=== PATIENT | male | born 1950 | race Caucasian/White ===

== ENCOUNTER → 2021-12-28 | Day surgery (SDC) | payer MEDICARE ==
[~2021-12-28] VITALS: Ht 172.7 cm; Wt 94.3 kg
[~2021-12-28] MED LIST: ALLERGY RELIEF10 M1 PO; ASPIRIN EC81 MG PO; HYDROCODON-ACE1 EAC4 PO; LISINOPRIL-HCT1 EAC1 PO; MAGNESIUM PO; NORVASC5 MG PO; PRAVACHOL20 MG PO; PROTONIX 40MG T40 MG PO
== END | disposition home or self-care (01) ==
LOC: FAS 07:18
DX: Z12.11 Encounter for screening for malignant neoplasm of colon (principal); K31.9 Disease of stomach and duodenum, unspecified; K29.70 Gastritis, unspecified, without bleeding; E78.5 Hyperlipidemia, unspecified; Z90.49 Acquired absence of other specified parts of digestive tract; Z85.038 Personal history of other malignant neoplasm of large intestine; Z86.010 Personal history of colon polyps
CPT/HCPCS: 43239; G0105; J2250; J2704; J7120